=== PATIENT | female | born 1965 | race Caucasian/White ===

== ENCOUNTER 2018-12-12 21:41 | Emergency (ER) | payer MEDICAID, OTHER ==
[~2018-12-12] VITALS: Ht 170.2 cm; Wt 112.0 kg
[2018-12-12 21:45] VITALS: Ht 170.2 cm; Wt 112.0 kg
[2018-12-13] MEDS ORDERED: KETOROLAC 60 MG INJ IM STA (01:25)
[2018-12-13] MEDS ORDERED: DIAZEPAM 2 MG TAB PO ONE (01:30)
[2018-12-13] MEDS ORDERED: CYCL10TA7 PO (03:00)
[2018-12-13] MEDS ORDERED: HYDR-4011 PO (03:00)
[2018-12-13] MEDS ORDERED: NAPR-985 PO (03:00)
[2018-12-13 03:10] VITALS: BP 134/76; PULSE 78; RESP 19
--- NOTE | 2018-12-13 03:33 | ERD ---
ER Documentation Chief Complaint Chief Complaint C/O LT SIDED HEAD, NECK AND ARM PAIN X3 WEEKS HPI This is a 53-year-old female who presents ED with complaints of left-sided neck pain that radiates down to her left arm times 3 weeks. Patient rates pain at an 8 out of 10 with a shooting tingling sensation to her left fourth and fifth digit. patient denies any fall or injury to account for pain. Patient also is complaining of some off and on left-sided headache over the past 3 weeks but states that she does not currently have a headache -headache comes and goes. Of utmost concern the patient is the left-sided neck pain. Denies decreased range of motion. Patient denies any fever, chills, chest pain, shortness of breath, trouble breathing, confusion, dizziness, blurry vision, changes in vision, lack of sensation, weakness, jaw pain and all other symptoms. Patient denies cardiac risk factors including: hypertension, diabetes mellitus, hypercholesterolemia, physical inactivity, smoking, hx of CAD, and prior stress/cath. ROS All systems reviewed and are negative except as per history of present illness. Medications Home Meds Active Scripts Hydrocodone/Acetaminophen ([place] 5-325 Tablet) 1 Each Tablet, 1 TAB PO Q6H PRN for PAIN, #5 TAB Prov:JUAQUIN OLIVER PA-C 12/13/18 Naproxen* (Naprosyn*) 500 Mg Tablet, 500 MG PO BID PRN for PAIN AND/OR INFLAMMATION, #30 TAB Prov:JUAQUIN OLIVER PA-C 12/13/18 Cyclobenzaprine Hcl* (Cyclobenzaprine Hcl*) 10 Mg Tablet, 10 MG PO TID, #15 TAB Prov:JUAQUIN OLIVER PA-C 12/13/18 Allergies Allergies: Coded Allergies: Penicillins (Verified Allergy, Unknown, 12/12/18) PMhx/Soc Medical and Surgical Hx: pt denies Medical Hx, pt denies Surgical Hx History of Surgery: No Anesthesia Reaction: No Hx Neurological Disorder: No Hx Respiratory Disorders: No Hx Cardiac Disorders: No Hx Psychiatric Problems: No Hx Miscellaneous Medical Probl: No Hx Alcohol Use: No Hx Substance Use: No Hx Tobacco Use: No Smoking Status: Never smoker FmHx Family History: No diabetes Physical Exam Vitals Vital Signs Date Temp Pulse Resp B/P (MAP) Pulse Ox O2 O2 Flow FiO2 Time Delivery Rate 3/1/19 98.5 78 19 134/76 100 03:10 (95) 12/12/18 98.5 80 19 141/79 98 21:45 (99) Physical Exam Physical Exam Vitals signs: Reviewed by me. General: Well developed, well nourished, in no acute distress. Patient is awake and alert. Head: Normocephalic, atraumatic. Eyes: Normal conjunctiva, Pupils PERRLA, EOM intact grossly ENT: Pharynx is clear, Moist mucous membranes, external ears, nose and mouth normal Neck: Supple, no masses, lymphadenopathy or JVD, muscle spasms present along lef t trapezius, no decreased range of motion with forward flexion, extension and left and right lateral rotation, there is moderate tenderness palpation along the paravertebral muscles along the C5-C6-C7, Respiratory: Clear to auscultation bilaterally with no wheezing, rhonchi, rales, no distress Cardiovascular: RRR, no murmurs, rubs, or gallops MSK: No edema, no unilateral swelling, 5/5 strength Back: No midline tenderness. No flank tenderness Neurologic: Alert and oriented, moving all extremities, normal speech, no focal weakness, no cerebellar signs. Normal mentation Neuro: M/S: Alert and oriented Face: EOMI, face and pharynx with normal sensation and function Motor: Normal strength throughout Sensation: Normal sensation throughout Speech: Normal Cerebel: Normal coordination Normal gait Normal finger to nose DTR: 2+ and symmetric upper/lower extremities Cranial nerves II through XII intact bilaterally Skin: warm and dry, No rash Psych: Normal mood Results 24 hrs Current Medications Medications Dose Sig/Timmy Start Time Status Last (Trade) Ordered Route PRN Stop Time Admin Dose Reason Admin Diazepam 2 mg ONCE ONCE 12/13/18 DC 12/13/18 (Valium) PO 01:30 12/13/18 01:57 01:31 Ketorolac 60 mg ONCE STAT 12/13/18 DC 12/13/18 Tromethamine IM 01:25 12/13/18 01:46 (Toradol) 01:28 Procedures/MDM EKG, MONITORS, & DIAGNOSTIC IMAGING: EKG read by may: Rate/Rhythm: Regular rate and rhythm at a rate of 65 Intervals: Normal Impression: No evidence of ischemia or arrhythmia No ST elevation, no peak T waves, no widened QRS, no VA interval prolongation, no QT interval prolongation [place] [id number] Radiology Main Line: [phone] DIAGNOSTIC IMAGING REPORT Patient: MORGAN EDWARDS : 1965 Age: 53 Sex: F MR #: [id number] DOS: 12/13/18 0125 Ordering MD: JUAQUIN OLIVER PA-C Location: [facility] Room/Bed: PROCEDURE: X-ray cervical spine. CLINICAL INDICATION: Cervical spine pain. TECHNIQUE: AP, lateral, odontoid, and swimmer's views of the cervical spine were obtained. COMPARISON: None. FINDINGS: No acute fracture or dislocation. The soft tissues unremarkable. The disc spaces are substantially preserved. IMPRESSION: No acute fracture. RPTAT: [facility] Physician Suresh Date Time Electronically viewed and signed by Physician Suresh on 12/13/2018 02:52 RS/ CC: JUAQUIN OLIVER PA-C [id number] ER COURSE: The patient was given Valium and Toradol The medication was well tolerated and the patient reports improvement in symptoms. The patient was stable throughout ED course. I kept the patient and/or family informed of laboratory and diagnostic imaging r esults throughout the emergency room course. The patient was promptly evaluated and a treatment plan was devised based on H&P and other data. This plan was discussed with the patient who agreed and had no further questions or concerns prior to discharge. MEDICAL DECISION MAKING: This is a 53-year-old female presents ED with left-sided neck pain. Physical examination is remarkable for muscle spasms present along the left trapezius. Given patient's history of having a tingling sensation shooting down the left arm to the left fourth and fifth finger to have this likely could be a cervical radiculopathy but given that Patient does have tenderness to palpation along the paravertebral muscles in the cervical spine as well as muscle spasm -this is likely musculoskeletal in nature. History and physical examination other data not consistent with emergent processes including but not limited to fracture, subluxation, spinal cord injury, carotid / vertebral dissection, cauda equina syndrome, cord compression, infiltrative etiology, infectious etiology, epidural abscess, among others. Patient's vitals are stable and he can be managed close outpatient follow-up. Advised patient follow-up with primary care next 48 hours. Return to ED with any worsening symptoms. Discussed case with overseeing pphysician dr. may and he agrees with close outpatient follow up DISPOSITION PLAN: We discussed follow up with the patient's primary care doctor within 24 to 48 hours. Patient counseled regarding my diagnostic impression and care plan. Prior to discharge all questions answered. Pt agrees with treatment plan and understands strict return precautions. Precautionary instructions provided including instructions to return to the ER if not improving or for any worsening or changing symptoms or concerns. SPECIALIST FOLLOW UP RECOMMENDED: None Patient has been advised to follow up with primary care in 1-2 days. Disclaimer: Inadvertent spelling and grammatical errors are likely due to EHR/dictation software use and do not reflect on the overall quality of patient care. Also, please note that the electronic time recorded on this note does not necessarily reflect the actual time of the patient encounter. Blood Pressure Assessment: Patient's blood pressure was elevated (>120/80) but appears stable without evidence of hypertension emergency or urgency. The patient was counseled about the risks of hypertension and urged to pursue outpatient monitoring and therapy within a week with their primary care physician. Departure Diagnosis: Primary Impression: Neck pain Additional Impression: Muscle spasms of neck Condition: Stable Patient Instructions: Neck Pain, No Trauma, Neck Sprain/Strain, Neck Spasm, No Trauma, Radiculopathy, Cervical Referrals: [facility] YOU HAVE RECEIVED A MEDICAL SCREENING EXAM AND THE RESULTS INDICATE THAT YOU DO NOT HAVE A CONDITION THAT REQUIRES URGENT TREATMENT IN THE EMERGENCY DEPARTMENT. FURTHER EVALUATION AND TREATMENT OF YOUR CONDITION CAN WAIT UNTIL YOU ARE SEEN IN YOUR DOCTORS OFFICE WITHIN THE NEXT 1-2 DAYS. IT IS YOUR RESPONSIBILITY TO MAKE AN APPOINTMENT FOR FOLOW-UP CARE. IF YOU HAVE A PRIMARY DOCTOR --you should call your primary doctor and schedule an appointment IF YOU DO NOT HAVE A PRIMARY DOCTOR YOU CAN CALL OUR PHYSICIAN REFERRAL HOTLINE AT IF YOU CAN NOT AFFORD TO SEE A PHYSICIAN YOU CAN CHOSE FROM THE FOLLOWING [facility] [address] [facility] [address] [facility] [facility] [address] [facility] [address] [facility] [facility] [address] [facility]. [facility] [address] Additional Instructions: Patient advised to return to the ED immediately for new or worsening symptoms. Patient advised to follow up with primary care provider in the next 24-48 hours. Patient verbalized understanding and agrees with treatment plan and course of action. If patient has no primary care they may follow up with one of the [facility] listed on the following page or one of the options listed below [facility] + [facility] [address] [place] [address] or [facility] [address] [place] [address] or [facility] [address] [place] [address] JUAQUIN OLIVER PA-C Dec 13, 2018 03:33
== END 2018-12-13 03:10 | disposition home or self-care (01) ==
LOC: FTE 21:41
DX: M54.2 Cervicalgia (principal); M62.838 Other muscle spasm
CPT/HCPCS: 72040; 93005; 96372; J1885; Z7502; Z7610